=== PATIENT | male | born 1930 | race Caucasian/White ===

== ENCOUNTER 2016-09-08 09:19 | Emergency (ER) | payer MEDICARE, BC ==
[~2016-09-08] VITALS: Ht 162.6 cm; Wt 87.3 kg
[~2016-09-08 09:19] MED LIST: ALDACTONE 25MG25 M1 PO; ASPIRIN E.C. 8181 MG PO; COZAAR100 MG PO; GLUCOSAMINE & C1 CA1 PO; NORVASC 5MG5 MG/TAB PO; ZOCOR 40MG40 MG PO
[2016-09-08 09:23] VITALS: TEMP 97.8
[2016-09-08] MEDS ORDERED: NORVASC 10MG10 MG PO (10:51)
[2016-09-08 12:08] VITALS: BP 140/78; PULSE 86
== END 2016-09-08 12:08 | disposition home or self-care (01) ==
LOC: COL.ER 09:19
DX: S42.414A Nondisplaced simple supracondylar fracture without intercondylar fracture of right humerus, initial encounter for closed fracture (principal); W01.198A Fall on same level from slipping, tripping and stumbling with subsequent striking against other object, initial encounter; Y92.009 Unspecified place in unspecified non-institutional (private) residence as the place of occurrence of the external cause; I10 Essential (primary) hypertension; Z87.891 Personal history of nicotine dependence

== ENCOUNTER 2021-01-25 14:20 | Emergency (ER) | payer MEDICARE, BC ==
[~2021-01-25] VITALS: Ht 162.6 cm; Wt 84.1 kg
[~2021-01-25 14:20] MED LIST changes: +NORVASC 10MG10 MG PO
[2021-01-25 14:40] VITALS: TEMP 98
[2021-01-25 16:29] VITALS: BP 122/74; PULSE 92
== END 2021-01-25 16:29 | disposition home or self-care (01) ==
LOC: COL.ER 14:20
DX: S09.90XA Unspecified injury of head, initial encounter (principal); S50.01XA Contusion of right elbow, initial encounter; I10 Essential (primary) hypertension; E78.5 Hyperlipidemia, unspecified; Z79.899 Other long term (current) drug therapy; W01.198A Fall on same level from slipping, tripping and stumbling with subsequent striking against other object, initial encounter